=== PATIENT | female | born 1990 | race Caucasian/White ===

== ENCOUNTER 2019-05-03 13:49 | Emergency (ER) | payer MEDICAID, OTHER ==
[2019-05-03 13:58] VITALS: BP 112/74
--- NOTE | 2019-05-03 14:24 | ER Document Report ---
HPI - HPI Patient complains to provider of: medication refill Time Seen by Provider: 05/03/19 14:12 Onset: This morning Onset/Duration: Sudden Quality of pain: No pain Pain Level: Denies Context: This 29-year-old female presents emergency department with request for medication refill for Lexapro. Reports she just moved here from [place] 1 week ago. She ran out of her refill medication. She has been to to urgent cares and nobody will refill the medication for her. She reports she takes medication for anxiety. Denies suicidal or homicidal ideations. Denies fever vomiting abdominal pain cramps. Reports that she has 1 more Lexapro 20 mg left and she plans on breaking a half until she can find some help. Past Medical History - General Information source: Patient Last Menstrual Period: Just finished - Social History Smoking Status: Current Every Day Smoker Cigarette use (# per day): Yes Chew tobacco use (# tins/day): No Frequency of alcohol use: None Drug Abuse: None Family History: None Patient has suicidal ideation: No Patient has homicidal ideation: No Psychiatric Medical History: Reports: Hx Anxiety Surgical Hx: Negative Vertical Provider Document - CONSTITUTIONAL Agree With Documented VS: Yes Exam Limitations: No Limitations General Appearance: WD/WN, No Apparent Distress - INFECTION CONTROL TRAVEL OUTSIDE OF THE [place] IN LAST 30 DAYS: No - HEENT HEENT: Atraumatic, Normocephalic - NECK Neck: Normal Inspection, Supple. negative: Lymphadenopathy-Left, Lymphadenopathy-Right - RESPIRATORY Respiratory: Breath Sounds Normal, No Respiratory Distress - CARDIOVASCULAR Cardiovascular: Regular Rate, Regular Rhythm - MUSCULOSKELETAL/EXTREMETIES Musculoskeletal/Extremeties: MAEW FROM - NEURO Level of Consciousness: Awake, Alert, Appropriate Motor/Sensory: No Motor Deficit - DERM Integumentary: Warm, Dry Course - Re-evaluation Re-evalutation: 05/03/19 14:23 This patient presents emergency department with request for medication refill for Lexapro. She was instructed on primary care providers in mental health. She was given a list of providers. She was also provided with a prescription for Lexapro dispense 5. She was instructed on the importance of following up with her primary care provider or mental health to obtain further refills. She verbalized understanding to all instructions. Dictation of this chart was performed using voice recognition software; therefore, there may be some unintended grammatical errors. - Vital Signs Vital signs: Temp Pulse Resp BP Pulse Ox 98.2 F 74 14 112/74 97 05/03/19 13:55 05/03/19 13:55 05/03/19 13:55 05/03/19 13:55 05/03/19 13:55 Discharge - Discharge Clinical Impression: Medication refill, Anxiety Condition: Stable Disposition: HOME, SELF-CARE Instructions: Anxiety ([facility]), Antidepressants ([facility]), Family Physicians / Practices Additional Instructions: *You have been evaluated for medication refill with history of anxiety *Follow-up with her primary care provider within 1 week or with mental health for further refills and evaluation *Take medication as prescribed *Return to ED for worsening condition, changes, needs Prescriptions: Escitalopram Oxalate [Lexapro] 20 mg PO DAILY #5 tablet
== END 2019-05-03 14:30 | disposition home or self-care (01) ==
LOC: ER 13:49
DX: Z76.0 Encounter for issue of repeat prescription (principal); F41.9 Anxiety disorder, unspecified; Z79.899 Other long term (current) drug therapy; F17.210 Nicotine dependence, cigarettes, uncomplicated
CPT/HCPCS: 99281

== ENCOUNTER 2019-05-07 23:50 | Emergency (ER) | payer MEDICAID ==
[2019-05-08] MEDS ORDERED: AZITHROMYCIN 250 MG TABLET PO ONE (01:34)
[2019-05-08] MEDS ORDERED: LEVONORGESTREL 1.5 MG TABLET (1 TAB/ER-USE) PO ONE (01:34)
[2019-05-08] MEDS ORDERED: LIDOCAINE 1% INJ-PF (10 MG/ML) 30 ML SDV INJ ONE (01:34)
[2019-05-08] MEDS ORDERED: PROMETHAZINE HCL 25 MG TABLET PO ONE (01:34)
[2019-05-08] MEDS ORDERED: CEFTRIAXONE INJ 250 MG VIAL IM ONE (01:34)
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
[2019-05-08 02:21] VITALS: BP 122/62
== END 2019-05-08 02:34 | disposition home or self-care (01) ==
LOC: ER 23:50
DX: T76.21XA Adult sexual abuse, suspected, initial encounter (principal); X58.XXXA Exposure to other specified factors, initial encounter; F17.200 Nicotine dependence, unspecified, uncomplicated; Z88.2 Allergy status to sulfonamides
CPT/HCPCS: 99284; 96374; 96375; J3490; J0696; A9270